=== PATIENT | male | born 1955 | race Caucasian/White ===

== ENCOUNTER 2023-09-24 12:03 | Outpatient (CLI) | payer MEDICARE | END 2023-09-24 12:04 | disposition home or self-care (01) | LOC: CSHRAD 12:03 | PROVIDERS: ATTEND Internal Medicine | DX: R06.2 Wheezing (principal); J44.9 Chronic obstructive pulmonary disease, unspecified | CPT/HCPCS: 71046 ==

== ENCOUNTER 2025-06-09 11:37 | Outpatient (CLI) | payer MEDICARE | END 2025-06-09 11:38 | disposition home or self-care (01) | LOC: CSHRAD 11:37 | PROVIDERS: ATTEND Internal Medicine | DX: R06.02 Shortness of breath (principal); R05.9 Cough, unspecified | CPT/HCPCS: 71046 ==